=== PATIENT | female | born 1960 | race Caucasian/White ===

== ENCOUNTER 2023-12-23 11:28 | Inpatient (IN) | payer OTHER ==
[2023-12-23] MEDS ORDERED: MAG HYDROX/AL HYDROX/SIMETH 30 ML UNIT-DOSE CUP ONE (12:52)
[2023-12-23] MEDS ORDERED: ACETAMINOPHEN INJECTION 100 ML IVPB ONE (12:52)
[2023-12-23] MEDS ORDERED: FAMOTIDINE 20 MG/50 ML IVPB 20 MG/50 ML MG IVPB ONE (12:53)
[2023-12-23 13:16] LABS: BASO % 1.2 % (0-2.0); EOS % 5.3 % (0-4.5); HEMATOCRIT 27.5 % (32.4-45.2); HEMOGLOBIN 8.6 GM/dL (10.7-15.3); LYMPH % 14.9 % (8-40); MCH 25.3 pg (25.7-33.7); MCHC 31.3 g/dl (32.0-36.0); MEAN CELL VOLUME 80.8 fl (80-96); MEAN PLT VOLUME 9.2 fl (7.5-11.1); MONO % 15.1 % (3.8-10.2); NEUT % 63.5 % (42.8-82.8); PLATELET COUNT 169 10^3/uL (134-434); RBC 3.41 M/mm3 (3.60-5.2); RDW 17.5 % (11.6-15.6); WHITE BLOOD COUNT 8.6 K/mm3 (4.0-10.0)
[2023-12-23] MEDS: ACETAMINOPHEN 1000 MG/100 ML BAG IVPB ONE (13:17)
[2023-12-23] MEDS: SODIUM CHLORIDE 0.9% 500 ML INFUS.BAG IV ONE ×2 (13:17→18:07)
[2023-12-23] MEDS: MAG HYDROX/AL HYDROX/SIMETH -MYLANTA- ORAL SUSPENSION PO ONE (13:17)
[2023-12-23 13:32] LABS: POTASSIUM 3.8 mmol/L (3.5-5.1)
[2023-12-23 13:33] LABS: CALCIUM 8.5 mg/dL (8.5-10.1)
[2023-12-23 13:34] LABS: ALBUMIN 2.9 g/dl (3.4-5.0); BLOOD UREA NITROGEN 12.7 mg/dL (7-18)
[2023-12-23 13:35] LABS: MAGNESIUM 1.8 mg/dL (1.8-2.4)
[2023-12-23 13:37] LABS: CREATININE 0.6 mg/dL (0.55-1.3)
[2023-12-23 13:38] LABS: TOT PROT 6.2 g/dl (6.4-8.2)
[2023-12-23 13:42] LABS: N-TERMINAL BNP 1974.4 pg/ml (5-125)
[2023-12-23] MEDS: FAMOTIDINE 20 MG/50 ML IVPB 20 MG/50 ML MG IVPB ONE (13:44)
[2023-12-23 14:05] LABS: URINE COLOR RED
[2023-12-23 14:06] LABS: URINE APPEARANCE TURBID
[2023-12-23 14:07] LABS: URINE BILIRUBIN SMALL (NEGATIVE); URINE GLUCOSE (UA) NEGATIVE (NEGATIVE)
[2023-12-23 14:08] LABS: URINE PROTEIN 300 (NEGATIVE); URINE RBC 48789 /uL (0-23.9)
[2023-12-23 14:09] LABS: EPI CELLS 28 /uL (0-25.1); HYALINE CASTS 5 /uL (0-3.1); URINE BACTERIA 11 /uL (0-1359); URINE WBC 376 /uL (0-25.8); YEAST NONE SEEN (NEGATIVE)
[2023-12-23] MEDS: TAMSULOSIN HCL 0.4 MG CAP PO ONE (17:19)
[2023-12-23] MEDS ORDERED: morphine SULFATE 4 MG/ML VIAL ONE (17:27)
[2023-12-23] MEDS: morphine CARPU-JECT 4 MG/1 ML DISP.SYRIN IVPUSH ONE (17:30)
[2023-12-23] MEDS ORDERED: ONDANSETRON 4 MG/2 ML VIAL ONE (17:31)
[2023-12-23] MEDS: ONDANSETRON 4 MG/2 ML VIAL IVPUSH ONE (17:34)
[2023-12-23] MEDS ORDERED: DOCUSATE SODIUM 100 MG CAPSULE (FP) PO PRN (20:36)
[2023-12-23] MEDS ORDERED: TRIMETHOBENZAMIDE HCL 200MG/2ML INJ IM ONE (21:40)
[2023-12-23] MEDS: TRIMETHOBENZAMIDE HCL 200MG/2ML INJ IM PRN (21:54)
[2023-12-24] MEDS: ACETAMINOPHEN 1000 MG/100 ML BAG IVPB PRN (01:43)
[2023-12-24 08:23] LABS: POTASSIUM 3.6 mmol/L (3.5-5.1)
[2023-12-24 08:26] LABS: CALCIUM 8.7 mg/dL (8.5-10.1)
[2023-12-24 08:27] LABS: ALBUMIN 2.9 g/dl (3.4-5.0); BLOOD UREA NITROGEN 11.4 mg/dL (7-18); MAGNESIUM 1.9 mg/dL (1.8-2.4)
[2023-12-24 08:30] LABS: CREATININE 0.6 mg/dL (0.55-1.3)
[2023-12-24 08:32] LABS: TOT PROT 5.9 g/dl (6.4-8.2)
[2023-12-24 08:35] LABS: BASO % 1.4 % (0-2.0); EOS % 7.7 % (0-4.5); HEMATOCRIT 26.4 % (32.4-45.2); HEMOGLOBIN 8.2 GM/dL (10.7-15.3); LYMPH % 21.9 % (8-40); MCH 25.1 pg (25.7-33.7); MCHC 31.1 g/dl (32.0-36.0); MEAN CELL VOLUME 80.8 fl (80-96); MEAN PLT VOLUME 9.6 fl (7.5-11.1); PLATELET COUNT 171 10^3/uL (134-434); RBC 3.27 M/mm3 (3.60-5.2); WHITE BLOOD COUNT 6.6 K/mm3 (4.0-10.0)
[2023-12-24] MEDS: FUROSEMIDE 40 MG/4 ML INJECTABLE VIAL IVPUSH ONE (09:01)
[2023-12-24] MEDS: MAGNESIUM OXIDE 400 MG TABLET (FP) PO SCH (13:36)
[2023-12-24] MEDS: PANTOPRAZOLE SOD 40 MG SUSPENSION PACKET PO SCH (13:36)
[2023-12-24] MEDS: APIXABAN 5 MG TABLET PO SCH (13:36)
[2023-12-24] MEDS: POLYETHYLENE GLYCOL (HEALTHYLAX) 3350 17 GM PACKET PO SCH (13:36)
[2023-12-24] MEDS: BUDESONIDE/FORMETEROL FUMARATE 160/4.5 mcg INHALER IH SCH (13:37)
[2023-12-24] MEDS ORDERED: ACETAMINOPHEN 325 MG TABLET (FP) PO PRN (20:36)
[2023-12-24] MEDS: SERTRALINE HCL 25 MG TABLET (FP) PO SCH (21:39)
[2023-12-24] MEDS: MONTELUKAST NA 10 MG TABLET PO SCH (21:39)
[2023-12-24] MEDS: ACETAMINOPHEN 500 MG TABLET (FP) PO PRN (22:02)
[2023-12-24] MEDS: MAG HYDROX/AL HYDROX/SIMETH 30 ML UNIT-DOSE CUP PO ONE (23:34)
[2023-12-24] MEDS: FAMOTIDINE 20 MG/50 ML IVPB 20 MG/50 ML MG IVPB ONE (23:34)
[2023-12-25] MEDS: ACETAMINOPHEN 1000 MG/100 ML BAG IVPB PRN (04:10)
[2023-12-25] MEDS: MAG HYDROX/AL HYDROX/SIMETH 30 ML UNIT-DOSE CUP PO PRN (07:34)
[2023-12-25] MEDS ORDERED: AMIODARONE HCL 200 MG TABLET PO SCH (10:00)
[2023-12-25] MEDS: SACUBITRIL/VALSARTAN 24 MG-26 MG TABLET PO SCH (10:27)
[2023-12-25] MEDS: FUROSEMIDE 40 MG/4 ML INJECTABLE VIAL IVPUSH SCH (10:27)
[2023-12-25] MEDS: EMPAGLIFLOZIN (JARDIANCE) 10 MG TABLET PO SCH (17:09)
[2023-12-27] MEDS: EMPAGLIFLOZIN (JARDIANCE) 10 MG TABLET PO SCH (07:05)
[2023-12-27 09:17] LABS: BASO % 1.6 % (0-2.0); EOS % 7.1 % (0-4.5); HEMATOCRIT 31.2 % (32.4-45.2); HEMOGLOBIN 9.9 GM/dL (10.7-15.3); LYMPH % 21.2 % (8-40); MCH 25.3 pg (25.7-33.7); MCHC 31.8 g/dl (32.0-36.0); MEAN CELL VOLUME 79.5 fl (80-96); MEAN PLT VOLUME 8.7 fl (7.5-11.1); MONO % 13.1 % (3.8-10.2); PLATELET COUNT 281 10^3/uL (134-434); RBC 3.93 M/mm3 (3.60-5.2); RDW 17.8 % (11.6-15.6)
[2023-12-27 09:42] LABS: POTASSIUM 3.4 mmol/L (3.5-5.1)
[2023-12-27 09:49] LABS: ALBUMIN 2.8 g/dl (3.4-5.0)
[2023-12-27 09:50] LABS: CALCIUM 8.2 mg/dL (8.5-10.1)
[2023-12-27 09:56] LABS: CREATININE 0.5 mg/dL (0.55-1.3)
[2023-12-27 09:57] LABS: BILIRUBIN,TOTAL 2.8 mg/dL (0.2-1); TOT PROT 5.8 g/dl (6.4-8.2)
[2023-12-27] MEDS: POTASSIUM CHLORIDE TABS 10 MEQ TABLET.ER (FP) PO ONE (17:39)
[2023-12-27 18:02] LABS: MAGNESIUM 1.9 mg/dL (1.8-2.4)
[2023-12-27] MEDS: CEFTRIAXONE 1 GM in DEXTROSE 5%-WATER - 50 ML IVPB SCH (18:48)
[2023-12-27] MEDS: DAPTOMYCIN IVPB SCH (19:34)
[2023-12-27] MEDS: SODIUM CHLORIDE IVPB SCH (19:34)
[2023-12-27] MEDS ORDERED: CEFAZOLIN SODIUM 2 GM in DEXTROSE 5%-WATER 100 ML IVPB SCH (22:00)
[2023-12-27] MEDS: ACETAMINOPHEN 1000 MG/100 ML BAG IVPB ONE (23:20)
[2023-12-28] MEDS: KETOROLAC TROMETHAMINE 15 MG/ML VIAL IVPUSH ONE ×2 (04:27→20:57)
[2023-12-28] MEDS: ACETAMINOPHEN 1000 MG/100 ML BAG IVPB ONE (05:25)
[2023-12-28 08:59] LABS: POTASSIUM 4.8 mmol/L (3.5-5.1)
[2023-12-28 09:01] LABS: ALBUMIN 2.8 g/dl (3.4-5.0); CALCIUM 8.3 mg/dL (8.5-10.1)
[2023-12-28 09:04] LABS: CREATININE 0.7 mg/dL (0.55-1.3)
[2023-12-28 09:06] LABS: BILIRUBIN,TOTAL 2.6 mg/dL (0.2-1); TOT PROT 5.9 g/dl (6.4-8.2)
[2023-12-28 09:23] LABS: BASO % 0.9 % (0-2.0); EOS % 1.5 % (0-4.5); HEMATOCRIT 29.8 % (32.4-45.2); HEMOGLOBIN 9.2 GM/dL (10.7-15.3); LYMPH % 17.5 % (8-40); MCH 24.7 pg (25.7-33.7); MCHC 30.8 g/dl (32.0-36.0); MEAN CELL VOLUME 80.3 fl (80-96); MEAN PLT VOLUME 8.7 fl (7.5-11.1); MONO % 10.9 % (3.8-10.2); NEUT % 69.2 % (42.8-82.8); PLATELET COUNT 254 10^3/uL (134-434); RBC 3.71 M/mm3 (3.60-5.2)
[2023-12-28 09:30] LABS: WHITE BLOOD COUNT 5.7 K/mm3 (4.0-10.0)
[2023-12-28] MEDS ORDERED: FUROSEMIDE 40 MG/4 ML INJECTABLE VIAL IVPUSH SCH (10:00)
[2023-12-28] MEDS ORDERED: DAPTOMYCIN IVPB SCH (16:00)
[2023-12-28] MEDS ORDERED: SODIUM CHLORIDE IVPB SCH (16:00)
[2023-12-28] MEDS: SUCRALFATE 1 GM TABLET (FP) PO SCH (17:32)
[2023-12-29 07:22] LABS: BASO % 1.1 % (0-2.0); EOS % 5.5 % (0-4.5); LYMPH % 21.3 % (8-40); MCH 25.3 pg (25.7-33.7); MEAN CELL VOLUME 78.9 fl (80-96); MEAN PLT VOLUME 8.9 fl (7.5-11.1); MONO % 12.3 % (3.8-10.2); NEUT % 59.8 % (42.8-82.8); PLATELET COUNT 261 10^3/uL (134-434); RBC 3.55 M/mm3 (3.60-5.2); RDW 18.1 % (11.6-15.6); WHITE BLOOD COUNT 6.1 K/mm3 (4.0-10.0)
[2023-12-29 07:44] LABS: POTASSIUM 4.1 mmol/L (3.5-5.1)
[2023-12-29 07:46] LABS: CALCIUM 8.6 mg/dL (8.5-10.1)
[2023-12-29 07:47] LABS: ALBUMIN 2.8 g/dl (3.4-5.0); BLOOD UREA NITROGEN 10.3 mg/dL (7-18)
[2023-12-29 07:50] LABS: CREATININE 0.6 mg/dL (0.55-1.3)
[2023-12-29 07:51] LABS: BILIRUBIN,TOTAL 2.6 mg/dL (0.2-1); TOT PROT 5.8 g/dl (6.4-8.2)
[2023-12-29] MEDS: KETOROLAC TROMETHAMINE 15 MG/ML VIAL IVPUSH ONE (20:34)
[2023-12-30 06:44] LABS: EOS % 6.1 % (0-4.5); HEMATOCRIT 27.4 % (32.4-45.2); HEMOGLOBIN 8.7 GM/dL (10.7-15.3); LYMPH % 17.9 % (8-40); MCH 25.5 pg (25.7-33.7); MCHC 31.9 g/dl (32.0-36.0); MEAN CELL VOLUME 79.9 fl (80-96); MEAN PLT VOLUME 8.6 fl (7.5-11.1); MONO % 13.8 % (3.8-10.2); NEUT % 61.2 % (42.8-82.8); PLATELET COUNT 266 10^3/uL (134-434); RBC 3.43 M/mm3 (3.60-5.2); RDW 17.2 % (11.6-15.6); WHITE BLOOD COUNT 6.8 K/mm3 (4.0-10.0)
[2023-12-30 07:08] LABS: ALBUMIN 2.7 g/dl (3.4-5.0); BLOOD UREA NITROGEN 11.8 mg/dL (7-18); CALCIUM 8.4 mg/dL (8.5-10.1)
[2023-12-30 07:11] LABS: CREATININE 0.8 mg/dL (0.55-1.3)
[2023-12-30 07:13] LABS: BILIRUBIN,TOTAL 2.6 mg/dL (0.2-1); TOT PROT 5.7 g/dl (6.4-8.2)
[2023-12-30 13:45] VITALS: BMI 30.9
[2023-12-31 07:41] LABS: BASO % 2.1 % (0-2.0); HEMATOCRIT 27.8 % (32.4-45.2); HEMOGLOBIN 8.7 GM/dL (10.7-15.3); LYMPH % 22.2 % (8-40); MCH 24.8 pg (25.7-33.7); MCHC 31.4 g/dl (32.0-36.0); MEAN CELL VOLUME 79.1 fl (80-96); MEAN PLT VOLUME 8.7 fl (7.5-11.1); MONO % 15.5 % (3.8-10.2); NEUT % 50.2 % (42.8-82.8); PLATELET COUNT 281 10^3/uL (134-434); RBC 3.52 M/mm3 (3.60-5.2); RDW 17.4 % (11.6-15.6); WHITE BLOOD COUNT 5.4 K/mm3 (4.0-10.0)
[2023-12-31 08:02] LABS: POTASSIUM 4.3 mmol/L (3.5-5.1)
[2023-12-31 08:04] LABS: CALCIUM 8.2 mg/dL (8.5-10.1)
[2023-12-31 08:05] LABS: ALBUMIN 2.7 g/dl (3.4-5.0); BLOOD UREA NITROGEN 11.5 mg/dL (7-18)
[2023-12-31 08:08] LABS: CREATININE 0.7 mg/dL (0.55-1.3)
[2023-12-31 08:09] LABS: TOT PROT 5.8 g/dl (6.4-8.2)
[2023-12-31 08:10] LABS: BILIRUBIN,TOTAL 1.9 mg/dL (0.2-1)
[2023-12-31 22:36] VITALS: RESP 18
[2024-01-01 09:49] VITALS: BP 103/71; PULSE 79; TEMP 97.9
== END 2024-01-01 14:51 | disposition home or self-care (01) | DRG 194 ==
LOC: JER 11:28 → JERBED 17:04 → J7W 22:26 → OBSVTOIN 12-25 14:49 → J7W 12-26 16:05
PROVIDERS: ADMIT Internal Medicine; ATTEND Internal Medicine
DX: I11.0 Hypertensive heart disease with heart failure (principal); R18.8 Other ascites; N13.30 Unspecified hydronephrosis; D64.9 Anemia, unspecified; I25.10 Atherosclerotic heart disease of native coronary artery without angina pectoris; N20.0 Calculus of kidney; N61.0 Mastitis without abscess; I50.23 Acute on chronic systolic (congestive) heart failure; E78.5 Hyperlipidemia, unspecified; F32.A Depression, unspecified
CPT/HCPCS: 36415; 71045-TC-FY; 74177-TC; 76641-TC-LT; 76700-TC; 78226-TC; 80048; 80053; 80061; 81003; 82150; 82550; 82553; 83036; 83605; 83690; 83735; 83880; 84443; 84484; 85025; 86850; 86900; 86901; 87086; 87186; 93005; 93010; 93306-TC; 99285-25; A9537; G0378; J0131; J0878; Q9967

== ENCOUNTER 2024-01-06 15:18 | Observation (INO) | payer OTHER ==
[2024-01-06 15:30] VITALS: BMI 26.4
[2024-01-06 17:07] LABS: EPI CELLS >36 /uL (0-25.1); HYALINE CASTS 2 /uL (0-3.1); URINE APPEARANCE CLEAR; URINE BACTERIA 24 /uL (0-1359); URINE BILIRUBIN NEGATIVE (NEGATIVE); URINE COLOR DK YELLOW; URINE GLUCOSE (UA) 3+ (NEGATIVE); URINE KETONE NEGATIVE (NEGATIVE); URINE LEUK ESTERASE 1+ (NEGATIVE); URINE NITRITE NEGATIVE (NEGATIVE); URINE PROTEIN 1+ (NEGATIVE); URINE RBC 5375 /uL (0-23.9); URINE WBC 239 /uL (0-25.8)
[2024-01-06 17:31] LABS: INR 1.64 (0.83-1.09); PROTHROMBIN TIME (PATIENT) 18.6 SEC (9.7-13.0)
[2024-01-06 17:33] LABS: ACTIVATED PTT 38.9 SECONDS (25.2-36.5)
[2024-01-06 17:38] LABS: BASO % 2.9 % (0-2.0); EOS % 8.8 % (0-4.5); HEMATOCRIT 28.2 % (32.4-45.2); HEMOGLOBIN 8.6 GM/dL (10.7-15.3); LYMPH % 25.5 % (8-40); MCH 24.2 pg (25.7-33.7); MCHC 30.4 g/dl (32.0-36.0); MEAN CELL VOLUME 79.6 fl (80-96); MEAN PLT VOLUME 8.2 fl (7.5-11.1); MONO % 17.9 % (3.8-10.2); NEUT % 44.9 % (42.8-82.8); PLATELET COUNT 187 10^3/uL (134-434); RBC 3.54 M/mm3 (3.60-5.2); WHITE BLOOD COUNT 5.9 K/mm3 (4.0-10.0)
[2024-01-06 17:46] LABS: CHLORIDE 104 mmol/L (98-107); SODIUM 136 mmol/L (136-145)
[2024-01-06 17:48] LABS: BLOOD UREA NITROGEN 9.2 mg/dL (7-18); CALCIUM 8.5 mg/dL (8.5-10.1); CO2 24 mmol/L (21-32); GLUCOSE,RANDOM 99 mg/dL (74-106); MAGNESIUM 2.1 mg/dL (1.8-2.4)
[2024-01-06 17:51] LABS: CREATININE 0.7 mg/dL (0.55-1.3); PHOSPHOROUS 3.6 mg/dL (2.5-4.9); SGOT/AST 133 U/L (15-37)
[2024-01-06 17:53] LABS: BILIRUBIN,TOTAL 2.4 mg/dL (0.2-1); TOT PROT 6.8 g/dl (6.4-8.2)
[2024-01-06 17:54] LABS: ALK PHOS 78 U/L (45-117)
[2024-01-06] MEDS ORDERED: FAMOTIDINE 20 MG/50 ML IVPB 20 MG/50 ML MG IVPB ONE (18:22)
[2024-01-06] MEDS ORDERED: ACETAMINOPHEN INJECTION 100 ML IVPB ONE (18:22)
[2024-01-06 18:23] LABS: ANION GAP 8 mmol/L (4-13); POTASSIUM 7.9 mmol/L (3.5-5.1); SGPT/ALT 23 U/L (13-61)
[2024-01-06] MEDS: FAMOTIDINE 20 MG/50 ML IVPB 20 MG/50 ML MG IVPB ONE (18:28)
[2024-01-06] MEDS: ACETAMINOPHEN 1000 MG/100 ML BAG IVPB ONE (18:28)
[2024-01-06 19:29] LABS: POTASSIUM 3.8 mmol/L (3.5-5.1)
[2024-01-06 19:32] LABS: BLOOD UREA NITROGEN 9.4 mg/dL (7-18)
[2024-01-06] MEDS ORDERED: MAG HYDROX/AL HYDROX/SIMETH 30 ML UNIT-DOSE CUP ONE (19:33)
[2024-01-06 19:34] LABS: CREATININE 0.7 mg/dL (0.55-1.3)
[2024-01-06] MEDS: MAG HYDROX/AL HYDROX/SIMETH 30 ML UNIT-DOSE CUP PO ONE (19:35)
[2024-01-06] MEDS ORDERED: MORPHINE SULFATE 2 MG/ML SYRINGE ONE (22:39)
[2024-01-06] MEDS: morphine CARPU-JECT 2 MG/1 ML DISP.SYRIN IVPUSH ONE (22:48)
[2024-01-07 07:41] LABS: HEMATOCRIT 26.8 % (32.4-45.2); HEMOGLOBIN 8.5 GM/dL (10.7-15.3); MCH 24.8 pg (25.7-33.7); MCHC 31.6 g/dl (32.0-36.0); MEAN CELL VOLUME 78.6 fl (80-96); MEAN PLT VOLUME 8.4 fl (7.5-11.1); PLATELET COUNT 181 10^3/uL (134-434); RBC 3.41 M/mm3 (3.60-5.2); RDW 17.6 % (11.6-15.6); WHITE BLOOD COUNT 4.5 K/mm3 (4.0-10.0)
[2024-01-07 07:55] LABS: POTASSIUM 3.8 mmol/L (3.5-5.1)
[2024-01-07 07:59] LABS: BLOOD UREA NITROGEN 8.5 mg/dL (7-18); CALCIUM 8.6 mg/dL (8.5-10.1)
[2024-01-07 08:02] LABS: CREATININE 0.6 mg/dL (0.55-1.3)
[2024-01-07] MEDS ORDERED: DOCUSATE SODIUM 100 MG CAPSULE (FP) PO PRN (08:48)
[2024-01-07] MEDS: MAGNESIUM OXIDE 400 MG TABLET (FP) PO SCH (11:40)
[2024-01-07] MEDS: FUROSEMIDE 40 MG TABLET (FP) PO SCH (11:40)
[2024-01-07] MEDS: POLYETHYLENE GLYCOL (HEALTHYLAX) 3350 17 GM PACKET PO SCH (11:40)
[2024-01-07] MEDS: PANTOPRAZOLE SOD 40 MG SUSPENSION PACKET PO SCH (11:40)
[2024-01-07] MEDS: CARVEDILOL 25 MG TABLET (FP) PO SCH (11:40)
[2024-01-07] MEDS: SERTRALINE HCL 25 MG TABLET (FP) PO SCH (11:41)
[2024-01-07] MEDS: BUDESONIDE/FORMETEROL FUMARATE 160/4.5 mcg INHALER IH SCH (11:41)
[2024-01-07] MEDS: SUCRALFATE 1 GM TABLET (FP) PO SCH (11:41)
[2024-01-07] MEDS: ACETAMINOPHEN 1000 MG/100 ML BAG IVPB PRN (20:18)
[2024-01-07] MEDS: MONTELUKAST NA 10 MG TABLET PO SCH (21:47)
[2024-01-08 02:27] VITALS: RESP 18
[2024-01-08 09:00] LABS: HEMATOCRIT 28.6 % (32.4-45.2); HEMOGLOBIN 8.9 GM/dL (10.7-15.3); MCH 24.4 pg (25.7-33.7); MCHC 31.2 g/dl (32.0-36.0); MEAN CELL VOLUME 78.1 fl (80-96); MEAN PLT VOLUME 8.2 fl (7.5-11.1); PLATELET COUNT 162 10^3/uL (134-434); RBC 3.66 M/mm3 (3.60-5.2); RDW 18.5 % (11.6-15.6); WHITE BLOOD COUNT 4.5 K/mm3 (4.0-10.0)
[2024-01-08 09:18] LABS: POTASSIUM 3.9 mmol/L (3.5-5.1)
[2024-01-08 09:21] LABS: ALBUMIN 2.9 g/dl (3.4-5.0); BLOOD UREA NITROGEN 8.1 mg/dL (7-18); CALCIUM 8.6 mg/dL (8.5-10.1)
[2024-01-08 09:26] LABS: CREATININE 0.6 mg/dL (0.55-1.3)
[2024-01-08 09:27] LABS: BILIRUBIN,TOTAL 1.9 mg/dL (0.2-1); TOT PROT 5.7 g/dl (6.4-8.2)
[2024-01-08 09:37] LABS: ANISOCYTOSIS 2+; MACROCYTOSIS 0; TARGET CELLS 1+
[2024-01-08] MEDS: CEPHALEXIN MONOHYDRATE 500 MG CAPSULE (UD) PO SCH (10:13)
[2024-01-08 17:47] LABS: N-TERMINAL BNP 1254.3 pg/ml (5-125)
[2024-01-08] MEDS: DEXTROSE 5%-0.45% SALINE 1,000 ML IV SCH (19:22)
[2024-01-09 01:21] VITALS: BP 97/62; PULSE 56; TEMP 97.7
== END 2024-01-09 02:00 | disposition short-term general hospital (02) ==
LOC: JER 15:18 → JERBED 19:01 → J6S 01-07 16:08
PROVIDERS: ADMIT Internal Medicine; ATTEND Internal Medicine
PROC: 3E033NZ Introduction of Analgesics, Hypnotics, Sedatives into Peripheral Vein, Percutaneous Approach (ICD-10-PCS; principal; 2024-01-06)
DX: I25.10 Atherosclerotic heart disease of native coronary artery without angina pectoris (principal); R10.13 Epigastric pain; N13.30 Unspecified hydronephrosis; I50.9 Heart failure, unspecified; N12 Tubulo-interstitial nephritis, not specified as acute or chronic; I50.20 Unspecified systolic (congestive) heart failure; I10 Essential (primary) hypertension; E78.5 Hyperlipidemia, unspecified; E66.9 Obesity, unspecified; D64.9 Anemia, unspecified; Z95.0 Presence of cardiac pacemaker; R18.8 Other ascites; F32.A Depression, unspecified
CPT/HCPCS: 0241U-QW; 36415; 74176-TC; 76705-TC; 80048; 80053; 81003; 83605; 83690; 83735; 83880; 84100; 84439; 84484; 85025; 85027; 85610; 85730; 93005; 93010; 96365; 96366; 96375; 96376; 99285-25; G0378; J0131

== ENCOUNTER 2024-05-06 15:41 | Inpatient (IN) | payer OTHER ==
[2024-05-06] MEDS ORDERED: ALBUTEROL SO4 2.5/IPRATROPIUM 0.5 INH SOL 3 ML VIAL.NEB. NEB ONE (17:04)
[2024-05-06] MEDS ORDERED: methylPREDNISolone NA SUCC 125 MG/2 ML VIAL ONE (17:05)
[2024-05-06] MEDS: methylPREDNISolone NA SUCC 125 MG/2 ML VIAL IVPUSH ONE (17:35)
[2024-05-06] MEDS: ALBUTEROL SO4 2.5/IPRATROPIUM 0.5 INH SOL 3 ML VIAL.NEB. NEB SCH (17:40)
[2024-05-06 17:56] LABS: EPI CELLS 2 /uL (0-25.1); HYALINE CASTS 179 /uL (0-3.1); URINE APPEARANCE TURBID; URINE BILIRUBIN 2+ (NEGATIVE); URINE COLOR RED; URINE GLUCOSE (UA) NEGATIVE (NEGATIVE); URINE KETONE NEGATIVE (NEGATIVE); URINE LEUK ESTERASE 3+ (NEGATIVE); URINE NITRITE POSITIVE (NEGATIVE); URINE PROTEIN 2+ (NEGATIVE); URINE RBC 1542 /uL (0-23.9); URINE UROBILINOGEN 0.2 mg/dL (0.2-1.0); URINE WBC 175 /uL (0-25.8)
[2024-05-06 17:59] LABS: VENOUS BASE EXCESS -3.1 mmol/L (-2-2); VENOUS O2 SATURATION 55.2 % (70-80); VENOUS PCO2 40.7 mmHg (38-52); VENOUS PH 7.355 (7.310-7.410)
[2024-05-06 18:02] LABS: BASO % 0.9 % (0-2.0); EOS % 2.1 % (0-4.5); HEMATOCRIT 36.4 % (32.4-45.2); HEMOGLOBIN 11.6 GM/dL (10.7-15.3); LYMPH % 14.9 % (8-40); MCH 27.1 pg (25.7-33.7); MEAN CELL VOLUME 84.8 fl (80-96); MEAN PLT VOLUME 9.2 fl (7.5-11.1); MONO % 11.8 % (3.8-10.2); NEUT % 70.3 % (42.8-82.8); PLATELET COUNT 204 10^3/uL (134-434); RBC 4.29 M/mm3 (3.60-5.2); RDW 17.2 % (11.6-15.6); WHITE BLOOD COUNT 6.9 K/mm3 (4.0-10.0)
[2024-05-06] MEDS ORDERED: CEFTRIAXONE 1 GM/50 ML BAG ONE (18:04)
[2024-05-06 18:07] LABS: INR 1.57 (0.83-1.09); PROTHROMBIN TIME (PATIENT) 17.5 SEC (9.7-13.0)
[2024-05-06 18:10] LABS: ACTIVATED PTT 36.2 SECONDS (25.2-36.5)
[2024-05-06] MEDS: CEFTRIAXONE 1,000 MG in DEXTROSE 5%-WATER - 50 ML IVPB ONE (18:10)
[2024-05-06 18:25] LABS: POTASSIUM 3.9 mmol/L (3.5-5.1)
[2024-05-06 18:27] LABS: CALCIUM 9.4 mg/dL (8.5-10.1)
[2024-05-06 18:28] LABS: ALBUMIN 3.9 g/dl (3.4-5.0); BLOOD UREA NITROGEN 21.5 mg/dL (7-18); MAGNESIUM 2.1 mg/dL (1.8-2.4)
[2024-05-06 18:31] LABS: CREATININE 1.2 mg/dL (0.55-1.3)
[2024-05-06 18:32] LABS: BILIRUBIN,TOTAL 1.7 mg/dL (0.2-1); TOT PROT 7.6 g/dl (6.4-8.2)
[2024-05-06 18:36] LABS: N-TERMINAL BNP 3978.4 pg/ml (5-125)
[2024-05-06 19:23] LABS: HIV INTERPRETATION NEGATIVE (NEGATIVE)
[2024-05-06 20:59] LABS: URINE BACTERIA 1507.6 /uL (0-1359)
[2024-05-06] MEDS ORDERED: ACETAMINOPHEN INJECTION 100 ML ONE (22:00)
[2024-05-06] MEDS ORDERED: LINEZOLID 600 MG PREMIX BAG 600 MG/300 ML BAG IVPB ONE (22:01)
[2024-05-06] MEDS: ACETAMINOPHEN 1000 MG/100 ML BAG IVPB ONE (22:06)
[2024-05-06] MEDS: LINEZOLID 600 MG PREMIX BAG 600 MG in PREMIX 300 IVPB ONE (22:18)
[2024-05-07] MEDS: methylPREDNISolone NA SUCC 40 MG/1 ML VIAL IVPUSH SCH ×2 (03:41→16:37)
[2024-05-07] MEDS ORDERED: SIMETHICONE 80 MG TAB.CHEW (FP) PO PRN (06:50)
[2024-05-07] MEDS: ACETAMINOPHEN 1000 MG/100 ML BAG IVPB PRN (06:57)
[2024-05-07] MEDS: ONDANSETRON 4 MG/2 ML VIAL IVPUSH ONE (07:02)
[2024-05-07] MEDS ORDERED: ACETAMINOPHEN 1000 MG/100 ML BAG IVPB PRN ×2 (09:21→16:03)
[2024-05-07 09:25] LABS: BASO % 0.2 % (0-2.0); HEMATOCRIT 35.3 % (32.4-45.2); HEMOGLOBIN 11.3 GM/dL (10.7-15.3); LYMPH % 18.9 % (8-40); MCH 27.4 pg (25.7-33.7); MEAN CELL VOLUME 85.7 fl (80-96); MEAN PLT VOLUME 9.1 fl (7.5-11.1); MONO % 2.8 % (3.8-10.2); NEUT % 78.1 % (42.8-82.8); PLATELET COUNT 197 10^3/uL (134-434); RBC 4.13 M/mm3 (3.60-5.2); RDW 17.2 % (11.6-15.6); WHITE BLOOD COUNT 4.1 K/mm3 (4.0-10.0)
[2024-05-07 09:44] LABS: POTASSIUM 4.8 mmol/L (3.5-5.1)
[2024-05-07 09:53] LABS: CREATININE 1.8 mg/dL (0.55-1.3)
[2024-05-07 09:54] LABS: BLOOD UREA NITROGEN 28.6 mg/dL (7-18)
[2024-05-07] MEDS: CEFTRIAXONE 1 G/50 ML PREMIX 50 ML IVPB SCH (10:09)
[2024-05-07] MEDS ORDERED: ALBUTEROL SO4 2.5/IPRATROPIUM 0.5 INH SOL 3 ML VIAL.NEB. NEB PRN (10:59)
[2024-05-07] MEDS: LINEZOLID 600 MG PREMIX BAG 600 MG/300 ML BAG IVPB SCH (10:59)
[2024-05-07] MEDS: FUROSEMIDE 40 MG/4 ML INJECTABLE VIAL IVPUSH ONE (13:19)
[2024-05-07] MEDS: SACUBITRIL/VALSARTAN 24 MG-26 MG TABLET PO SCH (14:40)
[2024-05-07] MEDS: APIXABAN 5 MG TABLET PO SCH (21:12)
[2024-05-07] MEDS: BUDESONIDE/FORMETEROL FUMARATE 160/4.5 mcg INHALER IH SCH (21:12)
[2024-05-07] MEDS: ATORVASTATIN CA 20 MG TABLET (FP) PO SCH (21:12)
[2024-05-07] MEDS: MONTELUKAST NA 10 MG TABLET PO SCH (21:14)
[2024-05-07] MEDS ORDERED: ATORVASTATIN CA 20 MG TABLET (FP) PO SCH (22:00)
[2024-05-08 06:47] LABS: BASO % 0.2 % (0-2.0); HEMATOCRIT 34.3 % (32.4-45.2); HEMOGLOBIN 10.8 GM/dL (10.7-15.3); MCH 26.8 pg (25.7-33.7); MCHC 31.4 g/dl (32.0-36.0); MEAN CELL VOLUME 85.3 fl (80-96); NEUT % 88.8 % (42.8-82.8); PLATELET COUNT 197 10^3/uL (134-434); RBC 4.03 M/mm3 (3.60-5.2); RDW 17.2 % (11.6-15.6); WHITE BLOOD COUNT 7.8 K/mm3 (4.0-10.0)
[2024-05-08 07:19] LABS: POTASSIUM 4.3 mmol/L (3.5-5.1)
[2024-05-08 07:21] LABS: CALCIUM 8.7 mg/dL (8.5-10.1)
[2024-05-08 07:25] LABS: CREATININE 1.4 mg/dL (0.55-1.3)
[2024-05-08 07:26] LABS: BILIRUBIN,TOTAL 1.5 mg/dL (0.2-1); TOT PROT 6.2 g/dl (6.4-8.2)
[2024-05-08] MEDS: metoPROLOL SUCCINATE 25 MG TAB.SR.24H (FP) PO SCH (09:23)
[2024-05-08] MEDS: FUROSEMIDE 40 MG/4 ML INJECTABLE VIAL IVPUSH SCH (09:23)
[2024-05-08] MEDS: SPIRONOLACTONE 25 MG TABLET PO SCH (09:24)
[2024-05-08] MEDS: MAGNESIUM OXIDE 400 MG TABLET (FP) PO SCH (09:25)
[2024-05-08] MEDS: CEFTRIAXONE 1 G/50 ML PREMIX 50 ML IVPB SCH (09:25)
[2024-05-08] MEDS: POLYETHYLENE GLYCOL (HEALTHYLAX) 3350 17 GM PACKET PO SCH (09:48)
[2024-05-08] MEDS ORDERED: LINEZOLID 600 MG PREMIX BAG 600 MG/300 ML BAG IVPB SCH (10:00)
[2024-05-08] MEDS ORDERED: FUROSEMIDE 40 MG TABLET (FP) PO SCH (10:00)
[2024-05-08 13:24] VITALS: BMI 33.5
[2024-05-08] MEDS: SODIUM CHLORIDE 500 ML IV ONE (16:30)
[2024-05-08] MEDS: PIPERACILLIN/TAZOB 3.375 GM 50 ML IVPB SCH (17:10)
[2024-05-08] MEDS: SENNOSIDES 8.6MG TABLET (FP) PO PRN (21:30)
[2024-05-08] MEDS: SIMETHICONE 80 MG TAB.CHEW (FP) PO PRN (21:31)
[2024-05-09 08:12] LABS: HEMATOCRIT 35.6 % (32.4-45.2); HEMOGLOBIN 11.3 GM/dL (10.7-15.3); MCH 26.7 pg (25.7-33.7); MCHC 31.8 g/dl (32.0-36.0); PLATELET COUNT 217 10^3/uL (134-434); RBC 4.23 M/mm3 (3.60-5.2); WHITE BLOOD COUNT 7.7 K/mm3 (4.0-10.0)
[2024-05-09 08:33] LABS: ALBUMIN 2.9 g/dl (3.4-5.0); BLOOD UREA NITROGEN 17.3 mg/dL (7-18); CALCIUM 8.5 mg/dL (8.5-10.1)
[2024-05-09 08:36] LABS: URIC ACID 3.2 mg/dL (2.6-7.2)
[2024-05-09 08:38] LABS: BILIRUBIN,TOTAL 1.3 mg/dL (0.2-1); TOT PROT 6.1 g/dl (6.4-8.2)
[2024-05-09 09:21] LABS: MAGNESIUM 1.7 mg/dL (1.8-2.4)
[2024-05-09] MEDS: metoPROLOL SUCCINATE 25 MG TAB.SR.24H (FP) PO SCH (10:57)
[2024-05-10 08:13] LABS: BASO % 0.1 % (0-2.0); HEMATOCRIT 37.5 % (32.4-45.2); HEMOGLOBIN 12.1 GM/dL (10.7-15.3); MCH 26.9 pg (25.7-33.7); MCHC 32.2 g/dl (32.0-36.0); MEAN CELL VOLUME 83.6 fl (80-96); MEAN PLT VOLUME 8.8 fl (7.5-11.1); MONO % 5.1 % (3.8-10.2); NEUT % 88.8 % (42.8-82.8); PLATELET COUNT 227 10^3/uL (134-434); RBC 4.48 M/mm3 (3.60-5.2); RDW 16.8 % (11.6-15.6); WHITE BLOOD COUNT 6.6 K/mm3 (4.0-10.0)
[2024-05-10 08:17] LABS: POTASSIUM 3.4 mmol/L (3.5-5.1)
[2024-05-10 08:19] LABS: ALBUMIN 2.7 g/dl (3.4-5.0); BLOOD UREA NITROGEN 12.9 mg/dL (7-18); CALCIUM 8.3 mg/dL (8.5-10.1)
[2024-05-10 08:22] LABS: CREATININE 0.8 mg/dL (0.55-1.3)
[2024-05-10 08:24] LABS: BILIRUBIN,TOTAL 1.2 mg/dL (0.2-1); TOT PROT 5.6 g/dl (6.4-8.2)
[2024-05-10] MEDS: ALBUTEROL SO4 2.5/IPRATROPIUM 0.5 INH SOL 3 ML VIAL.NEB. NEB SCH ×2 (11:45→15:45)
[2024-05-10] MEDS ORDERED: MIDAZOLAM HCL 2 MG/2 ML SINGLE DOSE VIAL ONE (12:53)
[2024-05-10] MEDS ORDERED: ONDANSETRON 4 MG/2 ML VIAL ONE (12:54)
[2024-05-10] MEDS ORDERED: KETOROLAC TROMETHAMINE 30 MG/1 ML VIAL ONE (12:54)
[2024-05-10] MEDS ORDERED: DEXAMETHASONE SOD PHOSPHATE 4 MG/1 ML VIAL ONE (12:54)
[2024-05-10] MEDS ORDERED: PROPOFOL 20 ML ONE (12:55)
[2024-05-10] MEDS ORDERED: SIMETHICONE 80 MG TAB.CHEW (FP) PO PRN (14:39)
[2024-05-10] MEDS ORDERED: SENNOSIDES 8.6MG TABLET (FP) PO PRN (14:39)
[2024-05-10] MEDS: MAGNESIUM SULF 50% (8.12 MEQ/2 ML-1 GM VIAL) IVPB ONE ×2 (15:49→15:54)
[2024-05-10] MEDS: KCL 10 MEQ IVPB 10 MEQ/100 ML INFUS.BAG IVPB SCH ×3 (15:50→21:42)
[2024-05-10] MEDS: PIPERACILLIN/TAZOB 3.375 GM 50 ML IVPB SCH (19:00)
[2024-05-10] MEDS ORDERED: methylPREDNISolone NA SUCC 40 MG/1 ML VIAL IVPUSH SCH (22:00)
[2024-05-10] MEDS: methylPREDNISolone NA SUCC 40 MG/1 ML VIAL IVPUSH SCH (22:26)
[2024-05-10] MEDS: SACUBITRIL/VALSARTAN 24 MG-26 MG TABLET PO SCH (22:26)
[2024-05-10] MEDS: ATORVASTATIN CA 20 MG TABLET (FP) PO SCH (22:26)
[2024-05-10] MEDS: MONTELUKAST NA 10 MG TABLET PO SCH (22:26)
[2024-05-10] MEDS: BUDESONIDE/FORMETEROL FUMARATE 160/4.5 mcg INHALER IH SCH (22:43)
[2024-05-11] MEDS: metoPROLOL SUCCINATE 25 MG TAB.SR.24H (FP) PO SCH (09:59)
[2024-05-11] MEDS: POLYETHYLENE GLYCOL (HEALTHYLAX) 3350 17 GM PACKET PO SCH (09:59)
[2024-05-11] MEDS: SPIRONOLACTONE 25 MG TABLET PO SCH (10:00)
[2024-05-11] MEDS: FUROSEMIDE 40 MG/4 ML INJECTABLE VIAL IVPUSH SCH (10:01)
[2024-05-11] MEDS: MAGNESIUM OXIDE 400 MG TABLET (FP) PO SCH (10:01)
[2024-05-11] MEDS: NITROFURANTOIN MACROCRYSTAL 50 MG CAPSULE (FP) PO SCH (17:26)
[2024-05-11] MEDS: POTASSIUM CHLORIDE ORAL LIQUID 20 MEQ/15 ML PO ONE (18:27)
[2024-05-12 08:39] LABS: MAGNESIUM 1.5 mg/dL (1.8-2.4)
[2024-05-12] MEDS: methylPREDNISolone NA SUCC 40 MG/1 ML VIAL IVPUSH SCH (09:46)
[2024-05-12 10:26] LABS: HEMATOCRIT 41.2 % (32.4-45.2); HEMOGLOBIN 13.1 GM/dL (10.7-15.3); LYMPH % 5.2 % (8-40); MCH 26.5 pg (25.7-33.7); MCHC 31.8 g/dl (32.0-36.0); MEAN CELL VOLUME 83.3 fl (80-96); MEAN PLT VOLUME 8.4 fl (7.5-11.1); MONO % 13.8 % (3.8-10.2); PLATELET COUNT 260 10^3/uL (134-434); RBC 4.94 M/mm3 (3.60-5.2); RDW 17.2 % (11.6-15.6); WHITE BLOOD COUNT 9.9 K/mm3 (4.0-10.0)
[2024-05-12 11:05] LABS: POTASSIUM 3.5 mmol/L (3.5-5.1)
[2024-05-12 11:07] LABS: ALBUMIN 2.7 g/dl (3.4-5.0); BLOOD UREA NITROGEN 13.1 mg/dL (7-18); CALCIUM 8.4 mg/dL (8.5-10.1)
[2024-05-12 11:10] LABS: CREATININE 0.8 mg/dL (0.55-1.3)
[2024-05-12 11:12] LABS: BILIRUBIN,TOTAL 1.1 mg/dL (0.2-1); TOT PROT 5.4 g/dl (6.4-8.2)
[2024-05-13 15:37] VITALS: BP 120/70; PULSE 66; RESP 18; TEMP 98.2
== END 2024-05-13 15:42 | disposition home or self-care (01) | DRG 443 ==
LOC: JER 15:41 → JERBED 21:54 → J6S 05-07 00:06 → J4S 05-07 15:40 → OBSVTOIN 05-10 11:30 → J8W 05-10 17:19
PROVIDERS: ADMIT Internal Medicine; ATTEND Internal Medicine
PROC: BT1FZZZ Fluoroscopy of Left Kidney, Ureter and Bladder (ICD-10-PCS; 2024-05-10)
PROC: 0TP98DZ Removal of Intraluminal Device from Ureter, Via Natural or Artificial Opening Endoscopic (ICD-10-PCS; principal; 2024-05-10 11:15)
PROC: 0T778DZ Dilation of Left Ureter with Intraluminal Device, Via Natural or Artificial Opening Endoscopic (ICD-10-PCS; 2024-05-10 11:15)
DX: N13.6 Pyonephrosis (principal); N20.0 Calculus of kidney; I50.23 Acute on chronic systolic (congestive) heart failure; N17.9 Acute kidney failure, unspecified; I13.0 Hypertensive heart and chronic kidney disease with heart failure and stage 1 through stage 4 chronic kidney disease, or unspecified chronic kidney disease; J45.901 Unspecified asthma with (acute) exacerbation; N18.9 Chronic kidney disease, unspecified; E78.5 Hyperlipidemia, unspecified; I25.10 Atherosclerotic heart disease of native coronary artery without angina pectoris; D64.9 Anemia, unspecified; F32.A Depression, unspecified; N12 Tubulo-interstitial nephritis, not specified as acute or chronic; Z96.0 Presence of urogenital implants
CPT/HCPCS: 36415; 71045-TC-FY; 73030-TC-RT-FY; 74176-TC; 76000-TC-FY; 80048; 80053; 81003; 82550; 82803; 83036; 83735; 83880; 84439; 84443; 84484; 84550; 85025; 85027; 85610; 85730; 86803; 86850; 86900; 86901; 87086; 87186; 87389; 93005; 93010; 93306-TC; 94640; 94760; 99285-25; C1758; C2617; G0378; J0131